=== PATIENT | female | born 1980 | race Hispanic/Latino ===

== ENCOUNTER 2016-08-12 16:22 | Emergency (ER) | payer SELFPAY ==
[~2016-08-12] VITALS: Ht 167.6 cm; Wt 71.4 kg
[~2016-08-12 16:22] MED LIST: MDR150V IM; PROC-4 PO; ZAN150T PO
[2016-08-12 16:40] VITALS: BP 124/74; PULSE 69; RESP 16; O2SAT 99
--- NOTE | 2016-08-12 18:08 | ED.REPORT ---
HPI-Abd Pain F Under 40 Date of Service Aug 12, 2016 ED Provider: Pratik Joy DO A 35 year old female with a history of fibromyalgia and bilateral tubal ligation presents to the ED complaining of lower abdominal pain radiating through the pelvis. This is accompanied by vaginal discharge. These symptoms been present for some time, and the pt had an ultrasound two weeks ago for evaluation. The ultrasound showed an ovarian cyst. The pt followed up with her PCP regarding these findings and has an appointment with a specialist in one month. She was also diagnosed with a bladder infection at that point and prescribed a five day course of antibiotics. She finished these antibiotics but her condition has not improved. Nursing Notes Stated Complaint: ABD PAIN Chief Complaint: Female Abdominal Pain Nursing Notes Reviewed: Yes Allergies: Coded Allergies: No Known Allergies (Verified Allergy, Unknown, 08/12/16) General Time Seen by MD: 18:07 Chief Complaint Pelvic pain Hx Obtained From: Patient Arrived By: Walk-in Sudden in Onset?: No Onset Occurred: More than a week ago... Symptom Duration: Since onset Recent Healthcare: No recent hospitalization, Recent doctor visit Similar Sx Previous: No Past Medical History Past Medical History chronic headaches-not previously worked up fibromyalgia Reports: GERD Past Surgical History laparoscopic bilateral tubal ligation Smoking History Never Smoker Social History Alcohol Use: "Social" Drug Use: Denies drug use Other Social History: Good social support, , Lives with children Ambulatory Status Independent Review of Systems Respiratory: Denies: Non-productive cough, Shortness of breath Cardiovascular: Denies: Chest pain GI: Reports: Abdominal pain, Denies: Vomiting Female: Reports: Pelvic pain, Vaginal discharge Musculoskeletal: Denies: Neck pain Complete sys rev & neg: except as marked. Physical Exam Initial Vital Signs Vital Signs (First) Date Time Temp Pulse Resp B/P Pulse Ox O2 Delivery O2 Flow Rate FiO2 08/12/16 16:40 37.1 69 16 124/74 99 Room Air Initial VS: Reviewed General/Constitutional: Awake, Alert Respiratory / Chest: Atraumatic, Breath sounds NL, Breath sounds = bilat, No respiratory distress Cardiovascular: Heart rate NL, Regular rhythm, Heart sounds NL Abdomen: Atraumatic, Soft diffuse lower abdominal tenderness Back: Atraumatic, Full range of motion Head / Eyes: Atraumatic, Normocephalic, PERRL, EOMI ENT: Atraumatic, Airway patent, Mucous membranes moist Skin: Atraumatic, Color NL, No rash, Warm, Dry 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 Findings suspicious for an endometrial polyp. Nonemergent hysterosonogram may be helpful to further characterize findings if clinically indicated. 2. Otherwise unremarkable pelvic ultrasound. Dictated by: Etta Moseley M.D. on 08/12/2016 at 20:08 Approved by: Etta Moseley M.D. on 08/12/2016 at 20:12 Lab Results Interpretation Result Diagram: 08/12/16 1848 08/12/16 1848 Test 08/12/16 17:45 08/12/16 18:48 08/12/16 19:51 Hold Urine Received (Received) White Blood Count 6.9th/mm3 (3.8-10.1) Red Blood Count 4.82mil/mm3 (3.90-5.20) Hemoglobin 14.4g/dL (12.0-15.6) Hematocrit 42.2% (35.0-46.0) Mean Corpuscular Volume 87.6fL (81-100) Mean Corpuscular Hemoglobin 29.9pg (27.0-35.0) Mean Corpuscular Hemoglobin Concent 34.1% (32.0-37.0) Red Cell Distribution Width 12.9% (12.3-15.4) Platelet Count 352bil/L (150-400) Neutrophils (%) (Auto) 47.7% (40-74) Lymphocytes (%) (Auto) 46.0% (14-46) Monocytes (%) (Auto) 5.0% (4-12) Eosinophils (%) (Auto) 0.6% (0-5) Basophils (%) (Auto) 0.6% (0-3) Sodium Level 138mEq/L (134-144) Potassium Level 3.7mEq/L (3.5-5.2) Chloride Level 102mEq/L (97-108) Carbon Dioxide Level 20mmol/L (18-29) Blood Urea Nitrogen 7mg/dL (6-20) Creatinine 0.52mg/dL (0.57-1.00) Estimat Glomerular Filtration Rate 195mL/min (>59) Glucose Level 97mg/dL (60-99) Calcium Level 9.3mg/dL (8.5-10.1) Total Bilirubin 0.2mg/dL (0.0-1.2) Aspartate Amino Transf (AST/SGOT) 20U/L (0-50) Alanine Aminotransferase (ALT/SGPT) 15U/L (0-32) Alkaline Phosphatase 91U/L (25-150) Total Protein 8.3g/dL (6.4-8.4) Albumin 4.8g/dL (3.4-5.0) Lipase 21U/L (13-60) HCG Beta Subunit < 0.500mIU/mL Urine Color Straw (YELLOW) Urine Appearance Clear (CLEAR,HAZY) Urine pH 5.0 (5.0-8.0) Urine Specific [place] 1.010 (1.003-1.035) Urine Protein Negativemg/dL (NEG,TRACE) Urine Glucose (UA) Negativemg/dL (NEGATIVE) Urine Ketones Negativemg/dL (NEGATIVE) Urine Occult Blood Small (NEGATIVE) Urine Nitrite Negative (NEGATIVE) Urine Bilirubin Negative (NEGATIVE) Urine Urobilinogen Normalmg/dL (NORMAL) Urine Leukocyte Esterase Negative (NEGATIVE) Urine RBC 0-2/hpf (0-2) Urine WBC 0-5/hpf (0-5) Urine Epithelial Cells Few/hpf (NONE-MOD) Urine Crystals None seen (NONE SEEN) Urine Bacteria None/hpf (NONE-FEW) Urine Hyaline Casts None/lpf (NONE) Urine Granular Casts None seen (NONE SEEN) Urine Waxy Casts None seen (NONE SEEN) Urine Red Blood Cell Casts None seen (NONE SEEN) Urine White Blood Cell Casts None seen (NONE SEEN) Urine Mucus None seen (None Seen) Urine Trichomonas None seen (NONE SEEN) Urine Yeast None (NONE SEEN) Urinalysis Comment None Urine Culture Reflexed Not indicated Chlamydia trachomatis DNA (ANTHONY) Negative (Negative) Neisseria gonorrhoeae DNA (ANTHONY) Negative (Negative) CT Abd / Pelvis Interpretation CONCLUSION: Normal appendix. No evidence of obstructive uropathy. 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 Nabothian cysts noted. Interpretation / Wet Read by: Interpret - Radiologist Pulse Oximetry Interpretation Pulse Oximetry Interpretation: 99% on room air Pulse Oximetry: Pulse Ox normal Re-Eval/Medical Decision Source of Hx: Old records Re-Evaluation/Progress #1: Time of Eval: 21:34 Re-Evaluation/Progress Note: Pt rechecked, who is feeling better but remains tender. Further treatment is discussed. Re-Evaluation/Progress #2: Time of Eval: 22:41 Patient Status: Condition improved Re-Evaluation/Progress Note: Pt rechecked, whose condition has improved. Pelvic exam is performed. Re-Evaluation/Progress #3: Time of Eval: 23:25 Patient Status: Condition improved Re-Evaluation/Progress Note: Pt rechecked, who is resting comfortably. She is informed of her diagnosis and the plan for discharge. The pt understands and agrees with the plan. All questions are addressed at this time. Counseled Regarding: Diagnosis, Lab results, Need for follow-up, When/why to return to ED Discharge & Departure Primary Impression: Pelvic pain Additional Impression: Cervicitis Disposition: Home Discharge Condition All VS Reviewed: Yes Condition: Stable Patient Instructions: Acute Abdominal Pain (ED), Cervicitis (ED) Additional Instructions: The ultrasound shows that you have an endometrial polyp. This will need to be followed up with her primary care physician. I doubt that this is the cause of the pain though. I suspect that sure suffering from a cervix infection. Take doxycycline twice daily for 7 days. Avoid sunlight while on the doxycycline. The CAT scan of her abdomen was also reassuring. No signs of acute intra- abdominal pathology. You may take 1-2 [place] every 6 hours as needed for pain tonight. Do not drive or take alcohol or acetaminophen while taking the [place]. Call your doctor tomorrow set up a close follow-up. Return if any problems or any worsening symptoms. Referrals: Ishan Angelo MD (PCP) Scribe Attestation Portions of this note were transcribed by Mary Carmen Benavidez. I, Dr. Joy personally performed the history, physical exam and medical decision-making; I reviewed and confirmed the accuracy of the information in the transcribed note. Signed by: Xavier Ray, 08/12/2016 and [id number]. copies to: Ishan Angelo MD, Todd P DO Aug 12, 2016 18:08 MARY CARMEN BENAVIDEZ Aug 12, 2016 18:28
[2016-08-12] MEDS ORDERED: Ondansetron 2 mg/mL 2 mL Inj IVPUSH PRN (18:25)
[2016-08-12 18:59] VITALS: BP 110/66; PULSE 95; RESP 16; O2SAT 100
[2016-08-12 18:59] LABS: BASOPHILS % (AUTO) 0.6 % (0-3); EOSINOPHILS % (AUTO) 0.6 % (0-5); Mean Corpuscular Hemoglobin 29.9 pg (27.0-35.0); Mean Corpuscular Volume 87.6 fL (81-100); NEUTROPHILS % (AUTO) 47.7 % (40-74); Platelet Count 352 bil/L (150-400)
[2016-08-12] MEDS: HYDROmorphone 0.5 mg/0.5 mL iSecure Syringe IVPUSH PRN ×2 (18:59→20:00)
[2016-08-12 19:22] LABS: Lipase 21 U/L (13-60)
--- NOTE | 2016-08-12 20:14 | DRSVH ---
PROCEDURE: US PELVIC SONOGRAM + TRANSVAGINAL SONOGRAM INDICATIONS: worsening pelvic pain, recent abnormal L adnexa US TECHNIQUE: Real-time scanning was performed of the pelvic organs, with image documentation. Additional endovagi nal scanning was necessary due to incomplete visualization of the adnexal and endometrial structures by transabdominal scanning. COMPARISON: None. FINDINGS: Transabdominal scanning: No pathologic free abdominal or pelvic fluid. Endovaginal scanning: Uterus: Uterus is normal in size at 8.8 x 4.1 x 5.5 cm. The endometrium measures 10.2 mm in combine d thickness. There is a questionable 1.2 x 0.7 x 0.8 cm polyp within the endometrium. A central vess el is visualized suggesting the presence of a vascular stalk. Nabothian cysts are present at the cerv ix. Ovaries: The right ovary measures 2.5 x 1.8 x 2.6 cm and has normal echotexture. The left ovary measu res 1.9 x 3.2 x 2.4 cm and has normal echotexture. Trace free fluid is present near the uterine fundus. IMPRESSION: 1. Findings suspicious for an endometrial polyp. Nonemergent hysterosonogram may be helpful to furthe r characterize findings if clinically indicated. 2. Otherwise unremarkable pelvic ultrasound. Dictated by: Etta Moseley M.D. on 08/12/2016 at 20:08 Approved by: Etta Moseley M.D. on 08/12/2016 at 20:12
[2016-08-12 20:29] LABS: APPEARANCE,URINE CLEAR (CLEAR,HAZY); COLOR,URINE STRAW (YELLOW); OCCULT BLOOD,URINE SMALL (NEGATIVE); UROBILINOGEN,URINE NORMAL (NORMAL)
[2016-08-12 22:18] VITALS: BP 135/80; PULSE 54; RESP 16; O2SAT 100
[2016-08-12] MEDS ORDERED: cefTRIAXone Inj 250 MG, Lidocaine PF 1% Inj 0.9 ML in Syringe 1 EACH IM ONE (22:45)
[2016-08-12] MEDS ORDERED: _HYDROcodone/APAP 5-325 mg Tablet PO PRN (22:50)
[2016-08-12 23:47] VITALS: BP 112/73; PULSE 54; RESP 19; O2SAT 98
--- NOTE | 2016-08-13 09:24 | DRSVH ---
PROCEDURE: CT ABDOMEN AND PELVIS WITH CONTRAST ([id number]) INDICATIONS: RLQ pain, normal ultrasound TECHNIQUE: After the administration of intravenous contrast, 5 mm thick sections acquired from the diaphragm to the symphysis. 5 mm coronal and sagittal reformats were acquired. For radiation dose reduction, the following was used: automated exposure control, adjustment of mA and/or kV according to patient siz e. COMPARISON: None. FINDINGS: Image quality: Excellent. ABDOMEN: Lung bases: Lung bases are clear. Heart size is normal. Solid organs: Liver and spleen are normal in size and enhancement. Gallbladder is within normal shaffer its. Biliary system is non dilated. Pancreas enhances normally. Within the left anterior pararenal space, at the posterior aspect of the pancreatic tail, there is a platelike region of soft tissue den sity measuring 53 mm craniocaudal by 6 mm anteroposterior by 36 mm transverse. No adrenal nodules. K idneys demonstrate normal size and enhancement, without hydronephrosis. Peritoneum and bowel: Bowel loops demonstrate normal wall thickness and caliber. No free air. Small amount of free fluid in the pelvis, within physiological limits in a menstruating female. Normal margarito endix. Nodes and vessels: No retroperitoneal or mesenteric adenopathy by size criteria. Aorta and inferior vena cava are normal in size. Miscellaneous: No ventral hernias. PELVIS: Genitourinary: Bladder wall thickness is normal. Miscellaneous: No inguinal hernias or adenopathy. Bones: No suspicious bony lesions. No vertebral body compression fractures. IMPRESSION: 1. No acute process. 2. Normal appendix. 3. Indeterminate soft tissue density within the left anterior pararenal space. Differential considera tions for this appearance include scarring secondary to prior/remote pancreatitis versus an atypical appearance of ectopic pancreatic tissue. 4. Small amount of free fluid within the pelvis, within physiological limits in a menstruating female . Dictated by: Hossein Mcgrath M.D. on 08/13/2016 at 8:52 Approved by: Hossein Mcgrath M.D. on 08/13/2016 at 9:22
[2016-09-11] MEDS ORDERED: OCP (16:25)
[2016-09-11] MEDS ORDERED: ibuprofen (16:25)
[2016-09-11] MEDS ORDERED: MULT-1018 PO (16:25)
[2016-10-24] MEDS ORDERED: OMEP20CA11 PO (08:30)
[2016-10-24] MEDS ORDERED: IBUP-1827 PO (08:30)
[2016-11-13] MEDS ORDERED: IBUP-1827 PO (09:32)
[2016-11-13] MEDS ORDERED: OXYB5TAB PO (09:32)
[2016-11-13] MEDS ORDERED: SERT50TA9 PO (09:32)
== END 2016-08-12 23:47 | disposition home or self-care (01) ==
LOC: SED 16:22
DX: R10.2 Pelvic and perineal pain (principal); N72 Inflammatory disease of cervix uteri; K21.9 Gastro-esophageal reflux disease without esophagitis; M79.7 Fibromyalgia
CPT/HCPCS: 36415; 74177; 76830; 76856; 80053; 81000; 81025; 83690; 84702; 85025; 87491; 87591; 96372; 96374; 96375; 96376; 99285; J0696; J1170; J1885; J2405; Q9967

== ENCOUNTER 2016-09-12 11:12 | Day surgery (SDC) | payer SELFPAY ==
[~2016-09-12] VITALS: Ht 167.6 cm; Wt 70.0 kg
[2016-09-12] VITALS (11 sets, daily range): BP systolic 98–126; BP diastolic 62–77; PULSE 65–85; RESP 11–18; O2SAT 95–99
[~2016-09-12 11:12] MED LIST changes: -MDR150V IM; +MULT-1018 PO; +OCP; -PROC-4 PO; -ZAN150T PO; +ibuprofen
[2016-09-12] MEDS ORDERED: Ondansetron 2 mg/mL 2 mL Inj ONE (11:13)
[2016-09-12] MEDS ORDERED: Rocuronium 10 mg/mL 5 mL Inj ONE (11:13)
[2016-09-12] MEDS ORDERED: Dexamethasone 4 mg/mL Inj ONE (11:13)
[2016-09-12] MEDS ORDERED: fentaNYL-PF 50 mCg/mL 2 mL Inj ONE (11:13)
[2016-09-12] MEDS ORDERED: Esmolol 10,000 mCg/mL 10 mL Inj ONE (11:13)
[2016-09-12] MEDS ORDERED: Propofol 10,000 mCg/mL 20 mL Inj ONE (11:13)
[2016-09-12] MEDS ORDERED: Succinylcholine Chloride 20 mg/mL 5 mL Inj ONE (11:13)
[2016-09-12] MEDS ORDERED: Glycopyrrolate 0.2 MG/ML 1mL Inj ONE (11:13)
[2016-09-12] MEDS ORDERED: Ketamine 10 mg/mL 20 mL Inj ONE (11:13)
[2016-09-12] MEDS ORDERED: Neostigmine 1 mg/mL 10 mL Inj ONE (11:13)
[2016-09-12] MEDS ORDERED: Lactated Ringer's 1,000 ML IV ONE (11:46)
[2016-09-12] MEDS ORDERED: CeFAZolin Inj 2 gm / 50mL D5W IV ONE (12:14)
[2016-09-12 12:21] LABS: EOSINOPHILS % (AUTO) 0.3 % (0-5); MONOCYTES % (AUTO) 6.4 % (4-12); Mean Corpuscular Hemoglobin 29.9 pg (27.0-35.0); Mean Corpuscular Volume 89.5 fL (81-100); NEUTROPHILS % (AUTO) 52.1 % (40-74); Platelet Count 336 bil/L (150-400)
--- NOTE | 2016-09-12 13:11 | PCM.HPANE ---
Patient Data Date of Service: Sep 12, 2016 Surgeon Admitting Provider: Attending Provider:Anushka Simmons MD Primary Care Physician:Ishan Angelo MD Other Provider:Abdi Bangura Anesthesia Reason for Visit High-Grade Carina, Pelvic Pain Ht/WT & BMI Height (Feet): 5 Height (Inches): 6 Weight (Kilograms): 70 Body Mass Index 24.00 Allergies Coded Allergies: No Known Allergies (Verified Allergy, Unknown, 08/12/16) Past Anesthesia History Anesthesia History: Denies:: Anesthesia Reactions, Malignant Hyperthermia Diabetes History Hx Diabetes?: No MRSA MRSA: No Medications Hypertension Medication: No Home Meds Incl Beta Mariah: No Reported Medications Multivitamin (Multi Vitamin Daily)1 Each Tablet1 Each PO DAILY 30 Days Ref 0 09/11/16 [Ocp] No Conflict Check1 Tab DAILY 09/11/16 [ibuprofen] No Conflict CheckUnknown Dose DAILY PRN For Pain 09/11/16 History History of ENT Problems?: No HEENT History: Denies:: Abnormal Airway Cataracts Difficult Intubation Dysphagia Glaucoma Hearing Problem Sinus Problem TMJ Denture Type: None Teeth Condition: Within Normal Limits Hx of Heart Problems?: No Cardiovascular History: Denies:: AICD Abdominal Aortic Aneurism Atrial Fibrillation Cardiac Surgery Chest Pain Congestive Heart Failure Coronary Artery Disease Edema Heart Murmur Hypertension Irregular Heartbeat Pacemaker Peripheral Vascular Rheumatic Fever Thrombophlebitis Valvular Heart Disease Hx of Respiratory Problem?: No Respiratory History: Denies:: Asthma COPD Dyspnea Emphysema Oxygen Administration Pneumonia Tuberculosis Use of C-PAP Machine Hx Neurologic Problems?: No Neurological History: Denies:: CVA Multiple Sclerosis Parkinson's Disease Seizures Hx of GI Problems?: Yes Gastrointestinal History: Positive for:: Gastroesphageal Reflux (MILD) Hx of Problems?: No Genitourinary History: Denies:: Urinary Tract Infection Female Hx: Positive for:: Endometriosis Denies:: Currently Skin History: Denies:: History Skin Disorders? Pressure Ulcers Hx Musculoskeletal Problems?: Yes Musculoskeletal History: Positive for:: Fibromyalgia Denies:: Back Injury Joint Replacement Musculoskeletal Trauma Osteoarthritis Hx of Psycho/Social Problems?: No Psycho Social History: Denies:: Anxiety Bipolar Disorder Hx Depression Suicide Attempt Other History/Comment NO Hx Surgeries?: Yes (DX LAP, tubal) Hx Any Other Health Problems?: Yes Other History: Positive for:: Hospitalization ([facility]IL[facility]) Denies:: Cancer Endocrine Disease Thyroid Disease History Blood Transfusions: Denies:: Blood Transfusions Hx Diabetes: No Hx Alcohol Use: NoHx Substance Use: No Smoking Status: Never Smoker Have You Smoked inLast 12 mo: No Stop/Bang Treated for Sleep Apnea?: No Do You Have a CPAP Machine?: No S-Snoring: Do You Snore Loudly: No T-Tired: feel tired, fatigued: No O-Obsered: Observed not breath: No P-Blood Pressure: treated: No B- Body Mass Index > 35 kg/m2: No A- Age over 50: No N- Neck Large Circumference: No G- Gender Male: No CODY Total Score: 0 CODY Risk Assessment: Low Risk, <3 Yes Risk Assessment Category Category 1A: Patient has history of documented sleep apnea, and HAS NOT received any narcotic, sedative or anesthesia administration during this stay. Category 1B: Patient has history of documented sleep apnea, and HAS received any narcotic , sedative or anesthesia administration during this stay Category 2: Patient has SUSPECTED Obstructive Sleep Apnea, and HAS received any narcotic , sedative or anesthesia administration during this stay. Category 3: Patient has SUSPECTED Obstructive Sleep Apnea and HAS NOT received narcotic, sedative or anesthesia administration during this stay. Category 4: Outpatient in Procedural Areas with known sleep apnea or who screen positive for High Risk via the STOP/BANG questionnaire. Exam Exam Vital Signs Vital Signs Date Time Temp Pulse Resp B/P Pulse Ox O2 Delivery O2 Flow Rate FiO2 09/12/16 11:37 36.5 66 14 110/70 99 Room Air General Appearance: Alert, Oriented X3, No Acute Distress HEENT/AIRWAY: MP 1 Lungs: Clear to Auscultation Heart: Exam Unremarkable Meds/Labs/Diagnostics Admission Meds Current Medications Lactated Ringer's (Lr) 1,000 ml @ ud STK-MED ONCE IV Last administered on 09/12t 11:46; Start 09/12/16 at 11:46; Stop 09/12/16 at 11:47; Status DC Labs Test 09/12/16 12:00 White Blood Count 6.1th/mm3 (3.8-10.1) Red Blood Count 4.38mil/mm3 (3.90-5.20) Hemoglobin 13.1g/dL (12.0-15.6) Hematocrit 39.2% (35.0-46.0) Mean Corpuscular Volume 89.5fL (81-100) Mean Corpuscular Hemoglobin 29.9pg (27.0-35.0) Mean Corpuscular Hemoglobin Concent 33.4% (32.0-37.0) Red Cell Distribution Width 13.2% (12.3-15.4) Platelet Count 336bil/L (150-400) Neutrophils (%) (Auto) 52.1% (40-74) Lymphocytes (%) (Auto) 40.0% (14-46) Monocytes (%) (Auto) 6.4% (4-12) Eosinophils (%) (Auto) 0.3% (0-5) Basophils (%) (Auto) 1.0% (0-3) Sodium Level 139mEq/L (134-144) Potassium Level 4.1mEq/L (3.5-5.2) Chloride Level 104mEq/L (97-108) Carbon Dioxide Level 19mmol/L (18-29) Blood Urea Nitrogen 7mg/dL (6-20) Creatinine 0.44mg/dL (0.57-1.00) Estimat Glomerular Filtration Rate 236mL/min (>59) Glucose Level 105mg/dL (60-99) Calcium Level 9.6mg/dL (8.5-10.1) Plan Impression Patient chart reviewed, patient interviewed and anesthestic plan with risks, benefits, and alternatives discussed, and informed consent obtained. ASA Physical Status: ASA2 Mod Systemic Disease Anesthetic Plan: GA Bene/Risks/Altern/Consents: Yes HP Complete Prior to Induction: Yes Geovany Harrell MD Sep 12, 2016 13:11
[2016-09-12] MEDS ORDERED: Bupivacaine-MPF 0.5% W/EPI 30 mL Inj INFILTRATE ONE (14:01)
[2016-09-12] MEDS ORDERED: Lactated Ringer's 1,000 ML IV SCH (14:21)
[2016-09-12] MEDS ORDERED: Lactated Ringer's 500 ML IV PRN (14:21)
[2016-09-12] MEDS ORDERED: Dexamethasone 4 mg/mL Inj IVPUSH PRN (14:25)
[2016-09-12] MEDS ORDERED: MetoCLOpramide 5 mg/mL 2 mL Inj IVPUSH PRN (14:25)
[2016-09-12] MEDS ORDERED: Ondansetron 2 mg/mL 2 mL Inj IVPUSH PRN (14:25)
[2016-09-12] MEDS ORDERED: HYDROmorphone 1 mg/mL Inj IVPUSH PRN (14:25)
[2016-09-12] MEDS ORDERED: Phenylephrine 10,000 mCg/mL Inj IVPUSH PRN (14:25)
[2016-09-12] MEDS ORDERED: EPHEDrine Sulfate 50 mg/mL Inj IVPUSH PRN (14:25)
[2016-09-12] MEDS ORDERED: HYDROmorphone 0.5 mg/0.5 mL iSecure Syringe ONE ×3 (15:34→16:15)
[2016-09-12] MEDS ORDERED: Acetaminophen IV 1,000 MG in IV Premix 1 EACH IV ONE (15:50)
[2016-09-12] MEDS: fentaNYL-PF 50 mCg/mL 2 mL Inj IVPUSH PRN ×2 (15:50→16:02)
--- NOTE | 2016-09-12 15:52 | PCM.DIOB ---
Obstetrical Disch Instruction Date of Service: Sep 12, 2016 Dates of Hospitalization Date of Hospital Admission Providers Admitting Physician: Primary Care Physician: Ishan Angelo MD Attending Physician: Anushka Simmons MD Discharge Diagnosis Discharge Diagnosis Chronic Pelvic Pain, possible adenomyosis, no evidence of endometriosis, S/P Diagnostic Laparoscopy . Thick Endometrial lining, no endometrial polyp S/P Hysteroscopy and D&C. High grade squamous intraepithelial dysplasia, S/P LEEP Problems: Diet Discharge Diet: No restrictions Activity Discharge Activity-General: Pelvic Rest for 6 weeks (no sex, no douching nor tampons), No lifting >10 pounds for 4-6 weeks Dressing and Incisional Care Hygiene: May shower Follow Up Plan Follow-up Provider (F9): Anushka Simmons MD Follow-up appointment: Weeks (Two) Call your provider for: Fever or Chills, Shortness of breath, Heavy vaginal bleeding, Heavy bleeding, Epigastric pain, Excessive constipation, Vaginal discomfort, Red painful breasts (Leg swelling, pain or redness) Anushka Simmons MD Sep 12, 2016 15:52
[2016-09-12] MEDS ORDERED: oxyCODONE-Acetamin 5-325 mg Tablet PO PRN (16:10)
--- NOTE | 2016-09-12 23:50 | OP ---
[address] [address] OPERATIVE REPORT PATIENT: KELLIE ROTHMAN : 1980 MR#: [id number] ADMIT: 09/12/2016 JOB ID: [id number] DATE OF SURGERY: 09/12/2016 PREOPERATIVE DIAGNOSIS(ES): 1. Chronic pelvic pain. 2. Endometrial polyp per ultrasound. 3. 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 POSTOPERATIVE DIAGNOSIS(ES): 1. Chronic pelvic pain. Possible adenomyosis. No evidence of endometriosis by laparoscopy. 2. Thick endometrial lining. No evidence of endometrial polyp by hysteroscopy. 3. High grade squamous intraepithelial dysplasia of the cervix. PROCEDURE: 1. Diagnostic laparoscopy. 2. Diagnostic hysteroscopy. 3. Dilatation and curettage. 4. Loop electrosurgical excision procedure of the cervix. COMPLICATIONS: None. IMPLANTS: None. SURGEON: Anushka Simmons MD. MEDICAL PRACTICE ADMINISTRATOR: Min Santana MD. Shot Coat Tender was required for safe completion of the procedure and appropriate visualization. ESTIMATED BLOOD LOSS: 75 mL. INTRAVENOUS FLUIDS: 800 mL crystalloid fluid. URINE OUTPUT: 20 cc of urine was drained prior to the procedure. ANESTHESIA: General. SPECIMENS: 1. LEEP cone biopsy, endocervical canal. 2. Endometrial curetting. 3. Endocervical curetting. FINDINGS: Laparoscopic findings: Normal uterus in shape. No evidence of masses but relatively enlarged to be 9-10 weeks in size possibly secondary to adenomyosis. Normal ovaries status post bilateral salpingectomy in the past. Normal appendix, normal liver and gallbladder. Grossly normal upper abdomen. The peritoneal lining appeared to be congested with some yellowish patches but not typical of endometriosis lesions. Congestion noted mostly in the anterior and posterior cul-de-sac. Normal uterosacral ligaments. Hysteroscopic findings: Endometrial lining appeared to be thick and irregular possibly secondary to menstruation status as the patient started menstruation a few days ago. No evidence of any endometrial polyp or lesions. PROCEDURE IN DETAIL: After informed consent was obtained, the patient was taken to the operation room. She was placed under general anesthesia. Then, she was prepped and draped in usual sterile fashion for abdominal and pelvic procedure. The patient was placed in dorsal lithotomy position. Heavy weighted speculum was placed in the posterior vaginal vault. Anterior retractor was used with good visualization of the cervix. Uterine manipulator was placed and the anterior cervical lip was grasped with a single-tooth tenaculum articulating the anterior tenaculum with uterine manipulator. Then, maintaining a sterile technique, gloves were changed and attention was turned to the abdominal part of the procedure. Subumbilical skin incision was made with a scalpel that was carried down to the fascia with sharp and blunt dissection. The fascia was identified and was grasped with Bernadette clamps, then was elevated up to the incision. Fascial incision was made with a scalpel. Then, the peritoneum was identified and was grasped with hemostats and then was elevated through the incision and incision was made with Metzenbaum scissors in the peritoneum in an area clear of vascularity or adhesions. A Amalia trocar 10 mm was placed at the incision. Confirmation of intraperitoneal placement was performed with a scope, then insufflation was started, and the trocar was secured in place with an inflated balloon. Then, systematic examination of the pelvis was performed. The patient was placed in the Trendelenburg position and a 2nd trocar was placed in the right lower quadrant to assist in manipulation of the pelvic organs. A 5 mm trocar was placed through a 5 mm incision under direct visualization. Systematic examination of the lower pelvis and upper abdomen was performed with the findings as mentioned above. Both ureter peristalsis was noted. Minimal pelvic adhesions noted to the pelvic side giraldo within the physiological variants. Multiple endoscopic pictures were obtained. Then, the scope was removed from the scope and was placed in the right lower quadrant port. Examination of the port placement at the infraumbilical port was performed with no evidence of injury or adhesions or any attached viscera. The intra-abdominal pressure was decreased. No evidence of any active bleeding at either ports. The infraumbilical port balloon was deflated. The port was slowly withdrawn with no evidence of bleeding and removed under direct visualization. The right lower quadrant port was removed. Complete deflation of the abdomen was performed before the closure of the fascial incision with 0-Vicryl in running fashion. Note: The fascia was tagged with a suture upon entry and the same suture was used to close the fascia. The skin was approximated with simple subcuticular stitches of 4-0 Vicryl. Steri-Strips were applied followed by adhesive bandage. Then, attention was turned to the hysteroscopic part of the procedure where the uterine manipulator was removed, the cervix was serially dilated to accommodate the hysteroscope, dilated to a size 6 Hegar dilator. Then, the hysteroscope was introduced with the findings as mentioned above. The hysteroscope was removed. Dilatation and curettage was performed in systematic fashion in all four quadrants starting with endocervical curettings. Then, the endometrial curettings were performed. The hysteroscope was then introduced and the endometrial cavity was examined and good curettage result was noted throughout the endometrial cavity. Both ostia were visualized. Then, attention was turned to the LEEP part of the procedure where the cervix was painted with Lugol's solution and area of decreased uptake was noted around the cervical os mostly to the right and lower quadrant. Then, size 2 x 0.8 cm loop electrode was used to excise the anterior lip of the cervix. Then, the posterior lip of the cervix around the cervical canal followed by a top-hat fashion excision of the endocervical canal using 1.5 x 1.2 loop electrode followed by silver ball cautery of the cervix with good hemostasis. Then, ECC was performed to ensure patency of the endocervical canal. Single-toothed tenaculum was removed. Hemostasis was ensured by applying Monsel's solution. Cervix was hemostatic. All instruments were removed from the vagina. All instrument, needle, sponge counts were correct x2. The patient tolerated the procedure well and was transferred to the recovery room in stable condition. Anushka Saldivar MD, was present and scrubbed for the entire procedure. JEANNETTE
--- NOTE | 2016-09-16 15:15 | PATH ---
SURGICAL PATHOLOGY Attending Physician:Anushka Simmons CASE STATUS: Signed Out PATIENT NAME: OLLIE ROTHMAN PID: [id number] : 1980 DATE COLLECTED:09/12/2016 23:45 SPECIMEN: 1: Endocervix, Curettage 2: Endometrium, Curettage 3: Cervical, Cone 4: Endocervix, Biopsy CLINICAL HISTORY: HIGH GARDE CORIE, PELVIC PAIN 1). ENDOCERVICAL CURETTINGS 2). ENDOMETRIAL CURETTINGS 3). CERVICAL LEEP CONE, LONG SUTURE AT 12:00, SHORT SUTURE AT 6:00 4). ENDOCERVICAL CANAL FINAL DIAGNOSIS: 1.ENDOCERVICAL CURETTINGS: FRAGMENTS OF ENDOCERVICAL TISSUE, NEGATIVE FOR ATYPIA. 2.ENDOMETRIAL CURETTINGS: FRAGMENTS OF PROLIFERATIVE ENDOMETRIUM, NEGATIVE FOR ATYPIA. SMALL FRAGMENTS CONSISTENT WITH PORTIONS OF BENIGN ENDOMETRIAL POLYP, NEGATIVE FOR ATYPIA. 3.CERVICAL LEEP CONE BIOPSY: CERVICAL TISSUE, INCLUDING TRANSFORMATION ZONE WITH CHRONIC INFLAMMATION AND REACTIVE EPITHELIAL CHANGES. RARE GROUPS OF SQUAMOUS EPITHELIAL CELLS WHICH APPEAR HIGHLY ATYPICAL, BUT ARE SEVERELY ALTERED BY CAUTERY ARTIFACT WHICH PRECLUDES ADEQUATE EVALUATION. ONE ENDOCERVICAL GLAND CONTAINING ATYPICAL METAPLASTIC SQUAMOUS EPITHELIUM. 4.ENDOCERVICAL CANAL TISSUE: ENDOCERVICAL TISSUE, NEGATIVE FOR ATYPIA. ICD10 CODE R87.613 GROSS DESCRIPTION: The specimens are received in formalin, labeled with the patient's name, and sublabeled as the following: (1) endocervical curettings; (2) endometrial curettings; (3) cervical LEEP cone, long suture @ 12:00, short suture 0600; (4) endocervical canal. (1) The specimen consists of clear gelatinous material containing multiple fragments of red-brown glistening tissue (2.4 x 2.1 x 0.3 cm in aggregate). Section code: (1A) tissue. Specimen entirely submitted. (2) The specimen consists of multiple fragments of mckenzie-white and red-brown glistening tissue (2.5 x 2.5 x 0.5 cm in aggregate). Section code: (2A) tissue. Specimen entirely submitted. (3) The specimen consists of a cervical LEEP biopsy (1.3 cm 12:00 to 6:00, 3.0 cm 3:00 to 9:00, 1.5 cm ectocervix to endocervix) received in 2 pieces. The specimen is oriented with 2 black sutures (long-12:00; short-6:00). The mucosa and cut surface are pichardo-pink smooth with multiple pale-yellow, yellow-orange well circumscribed nodules (0.1 cm-0.2 cm) and cystic cavities (0.1cm-0.7 cm) containing clear colorless gelatinous material. Ink code: blue-radial; black-deep. Section code: (3A) 12:00-3:00; (3B) 3:00-6:00; (3C) 6:00-9:00; (3D) 9:00-12:00. Specimen entirely submitted. (4) The specimen consists of 3 unoriented pieces of cervix (3.1 x 2.6 x 0.5 cm in aggregate, ranging 1.5 x 1.2 x 0.5 cm-3.1 x 1.1 x 0.4 cm). The mucosa is mckenzie-pink smooth and shiny. The endocervix is mckenzie and finely granular with multiple cystic cavities (0.2-0.4 cm) containing clear colorless gelatinous material identified. No other nodules, masses or lesions identified. Ink code: black-resection margin. Section code: (4A) piece #1, serially sectioned; (4B) piece #2, serially sectioned; (4C-4D) piece #3, serially sectioned. Specimen entirely submitted. 09/14/16 JM MICRO DESCRIPTION: See diagnosis. ICD-9 CODES: CPT CODES: 1: 56166 2: 56995 3: 65675 4: 66389 Electronically Signed Out Ziggy Avila MD [facility] [address], [place] [address] Technical component performed at [facility], [address] [place] [address] Ave[address], [place], [address]
[2016-10-24] MEDS ORDERED: OMEP20CA11 PO (08:30)
[2016-10-24] MEDS ORDERED: IBUP-1827 PO (08:30)
[2016-11-13] MEDS ORDERED: SERT50TA9 PO (09:32)
[2016-11-13] MEDS ORDERED: OXYB5TAB PO (09:32)
[2016-11-13] MEDS ORDERED: IBUP-1827 PO (09:32)
== END 2016-09-12 23:59 | disposition home or self-care (01) ==
LOC: SAS 11:12
PROVIDERS: ATTEND Obstetrics & Gynecology
DX: R87.613 High grade squamous intraepithelial lesion on cytologic smear of cervix (HGSIL) (principal); N84.1 Polyp of cervix uteri; M79.7 Fibromyalgia; F33.2 Major depressive disorder, recurrent severe without psychotic features; F43.10 Post-traumatic stress disorder, unspecified; E55.9 Vitamin D deficiency, unspecified; K21.9 Gastro-esophageal reflux disease without esophagitis
CPT/HCPCS: 36415; 57522; 58558; 58660; 80048; 85025; 86850; J0131; J0330; J0690; J1100; J1170; J1885; J2175; J2250; J2405; J2710; J2765; J3010; J7120

== ENCOUNTER 2016-10-25 08:25 | Day surgery (SDC) | payer SELFPAY ==
[2016-10-25] VITALS (7 sets, daily range): BP systolic 94–107; BP diastolic 49–70; PULSE 60–72; RESP 16; O2SAT 97–100
[~2016-10-25] VITALS: Ht 165.1 cm; Wt 66.7 kg
[~2016-10-25 08:25] MED LIST changes: +IBUP-1827 PO; +OMEP20CA11 PO; +Sodium Chloride LOK Flush 10 mL Syringe IV PRN; +fentaNYL-PF 50 mCg/mL 2 mL Inj IVPUSH PRN; -ibuprofen
[2016-10-25] MEDS ORDERED: fentaNYL-PF 50 mCg/mL 2 mL Inj IVPUSH ONE (08:26)
[2016-10-25] MEDS ORDERED: OXYC1TAB24 PO (08:45)
[2016-10-25] MEDS: 0.9% Sodium Chloride 1,000 ML IV SCH ×2 (08:54→09:01)
[2016-10-25] MEDS ORDERED: Ondansetron 2 mg/mL 2 mL Inj ONE (10:09)
--- NOTE | 2016-10-26 05:10 | ENDO ---
[address] [address] ENDOSCOPY PROCEDURE PATIENT: KELLIE ROTHMAN : 1980 MR#: [id number] ADMIT: 10/25/2016 JOB ID: [id number] DATE OF SERVICE: 10/25/2016 TYPE OF OPERATION: 1. Estimated gestational age with biopsy. 2. Colonoscopy with biopsy. PREOPERATIVE DIAGNOSES: 1. Abdominal pain. 2. Gastroesophageal reflux disease. 3. Change in bowel habits. POSTOPERATIVE DIAGNOSES: 1. Normal upper endoscopy, status post biopsy. 2. Small internal hemorrhoids. ANESTHESIA: Fentanyl 150 mcg and Versed 6 mg IV administered. COMPLICATIONS: None. BLOOD LOSS: Minimal. DESCRIPTION OF PROCEDURE: After risks and benefits were explained to the patient, informed consent was obtained. After anesthesia administered, an upper endoscope was then inserted into the mouth intubating the esophagus, stomach, to the second portion of duodenum. Mucosa carefully examined. After procedure was done, the scope withdrawn and procedure terminated. Colonoscope was then inserted from the rectum to the terminal ileum. Mucosa carefully examined. Prep of the patient was excellent. After procedure was done, the scope withdrawn and procedure terminated. FINDINGS: Upon inspection of the esophagus, the esophagus was normal without masses, ulcers, or lesions. Z-line located at 40 cm from incisors. Upon entering the stomach, the stomach was also normal without masses, ulcers, or lesions. Retroflexion normal. Duodenal bulb and first and second portions were normal. Biopsies taken of duodenum, antrum, body and distal esophagus. Upon inspection of the anus, no masses, hemorrhoids, ulcers, or fissures that were seen. Throughout the entire examination, there were no polyps, masses, or lesions. Biopsies taken at terminal and random colon. Retroflexion showed small internal hemorrhoids. IMPRESSIONS: 1. Small internal hemorrhoids. 2. Normal upper endoscopy, status post biopsy. RECOMMENDATION: Await pathology results. Follow up in GI clinic with Dr. Alan Harris as an outpatient.
--- NOTE | 2016-10-28 18:18 | PATH ---
SURGICAL PATHOLOGY Attending Physician:Krystian Joseph MD CASE STATUS: Signed Out PATIENT NAME: OLLIE ROTHMAN PID: [id number] : 1980 DATE COLLECTED:10/25/2016 22:05 SPECIMEN: 1: Duodenum, Biopsy 2: Stomach, Antrum, Biopsy 3: Gastric, Biopsy 4: Esophagus, Biopsy 5: Ileum, Biopsy 6: Colon, Biopsy CLINICAL HISTORY: 1). DUODENAL BIOPSY 2). ANTRUM BIOPSY 3). GASTRIC BODY BIOPSY 4). DISTAL ESOPHAGEAL BIOPSY 5). TERMINAL ILEUM BIOPSY 6). RANDOM COLON BIOPSY FINAL DIAGNOSIS: 1. Duodenum Biopsy: Duodenal mucosa with no diagnostic abnormality. Negative for active inflammation, features of sprue, dysplasia, or malignancy. 2. Antrum Biopsy: Portions of gastric antral mucosa with mild chronic gastritis. No definite H. pylori organisms identified by H&E stain. Immunohistochemistry studies pending; results will be reported as an addendum. Negative for intestinal metaplasia, dysplasia, and malignancy. 3. Gastric Body Biopsy: Portions of gastric body-type mucosa with mild chronic gastritis. No definite H. pylori organisms identified by H&E stain. H. pylori immunohistochemistry studies pending; results will be reported as an addendum. Negative for intestinal metaplasia, dysplasia, and malignancy. 4. Distal Esophageal Biopsy: Portions of squamous epithelium with no diagnostic abnormality. Negative for squamous dysplasia and malignancy. No well-preserved columnar epithelium identified for evaluation. 5. Terminal Ileum Biopsy: Superficial portions of small intestinal mucosa with no diagnostic abnormality. Negative for dysplasia and malignancy. 6. Random Colon Biopsies: Superficial portions of colorectal mucosa with no diagnostic abnormality. There is no evidence of active inflammation, granulomas, dysplasia, or malignancy. ICD10: K29.7 GROSS DESCRIPTION: The specimen is received in six formalin filled containers labeled with the patient's name. 1). The specimen is sublabeled "duodenal" and consists of 2 portions of tissue which aggregate to 0.3 x 0.3 x 0.2 CM. The specimen is entirely submitted in cassette 1A. 2). The specimen is sublabeled "antrum" and consists of 2 portions of tissue which aggregate to 0.4 x 0.3 x 0.2 CM. The specimen is entirely submitted in cassette 2A. 3). The specimen is sublabeled "gastric body" and consists of 2 portions of tissue which aggregate to 0.3 x 0.3 x 0.2 CM. The specimen is entirely submitted in cassette 3A. 4). The specimen is sublabeled "distal esophageal" and consists of 2 portions of tissue which aggregate to 0.2 x 0.2 x 0.1 CM. The specimen is entirely submitted in cassette 4A. 5). The specimen is sublabeled "terminal ileum" and consists of 3 portions of tissue which aggregate to 0.2 x 0.2 x 0.2 CM. The specimen is entirely submitted in cassette 5A. 6). The specimen is sublabeled "random colon" and consists of 5 portions of tissue which aggregate to 0.6 x 0.5 x 0.3 CM. The specimen is entirely submitted in cassette 6A. 10/25/2016 [facility] ICD-9 CODES: CPT CODES: 1: 79962 2: 00904, 15533 3: 13599, 50282 4: 71958 5: 36662 6: 31987 PROCEDURE/ADDENDA: Immunohistochemistry SPI Interpretation {Not Entered} Results-Comments 2.ANTRUM BIOPSY: Immunostains for Helicobacter organisms are negative. The diagnosis is unchanged. 3.GASTRIC BODY BIOPSY: Immunostains for Helicobacter organisms are negative. The diagnosis is unchanged. This test was developed and its performance characteristics determined by [facility]. It has not been cleared or approved by the U. S. Food and Drug Administration. The FDA has determined that such clearance or approval is not necessary. This test is used for clinical purposes. It should not be regarded as investigational or for research. Electronically Signed Out Markus Hernandez MD Electronically Signed Out Cherelle Donovan MD [facility] [address], [place] [address] Technical component performed at [facility], [address], [place], [address]
[2016-11-13] MEDS ORDERED: OXYB5TAB PO (09:32)
[2016-11-13] MEDS ORDERED: SERT50TA9 PO (09:32)
[2016-11-13] MEDS ORDERED: IBUP-1827 PO (09:32)
== END 2016-10-25 23:59 | disposition home or self-care (01) ==
LOC: END 08:25
PROVIDERS: ATTEND Internal Medicine Gastroenterology
DX: R19.4 Change in bowel habit (principal); R10.84 Generalized abdominal pain; K21.9 Gastro-esophageal reflux disease without esophagitis; K64.8 Other hemorrhoids
CPT/HCPCS: 43239; 45380; 99153; G0500; J2250; J2405; J3010; J7030

== ENCOUNTER 2016-11-14 09:52 | Day surgery (SDC) | payer SELFPAY ==
[2016-11-14] VITALS (13 sets, daily range): BP systolic 108–125; BP diastolic 61–87; PULSE 60–88; RESP 13–17; O2SAT 95–98
[~2016-11-14] VITALS: Ht 165.1 cm; Wt 67.8 kg
--- NOTE | 2016-11-14 08:04 | PCM.HPANE ---
Patient Data Surgeon Admitting Provider: Attending Provider:Anushka Simmons MD Primary Care Physician:Ishan Angelo MD Other Provider:Abdi Bangura Anesthesia Reason for Visit Dysmenorrhea, Pelivc Pain, Cystocele Ht/WT & BMI Height (Feet): 5 Height (Inches): 5 Weight (Kilograms): 67.13 Body Mass Index 24.00 Allergies Coded Allergies: No Known Allergies (Verified Allergy, Unknown, 10/24/16) Past Anesthesia History Anesthesia History: Denies:: Abnormal Airway, Anesthesia Reactions, Difficult Intubation, Fam Anesthesia Reaction, Fam Malignant Hypertherm, Malignant Hyperthermia Diabetes History Hx Diabetes?: No MRSA MRSA: No Medications Hypertension Medication: No Home Meds Incl Beta Mariah: No Reported Medications Sertraline HCl (Sertraline)50 Mg [id number] Mg PO DAILY 30 Days Ref 0 11/13/16 Oxybutynin Chloride ER 5 Mg Tab.er.245 Mg PO DAILY Ref 0 11/13/16 Ibuprofen 600 Mg [id number] Mg PO QID PRN For Pain Ref 0 11/13/16 Omeprazole 20 Mg Capsule.dr20 Mg PO DAILY Ref 0 10/24/16 Multivitamin (Multi Vitamin Daily)1 Each Tablet1 Each PO DAILY 30 Days Ref 0 09/11/16 Discontinued Reported Medications oxyCODONE-Acetaminophen 5-325 mg 1 Each Tablet1 Tab PO Q6H PRN For Pain Ref 0 10/25/16 [Ocp] No Conflict Check1 Tab DAILY 09/11/16 History History of ENT Problems?: No HEENT History: Denies:: Abnormal Airway Cataracts Difficult Intubation Dysphagia Hearing Problem Sinus Problem TMJ Denture Type: None Teeth Condition: Within Normal Limits Hx of Heart Problems?: No Cardiovascular History: Denies:: AICD Abdominal Aortic Aneurism Atrial Fibrillation Cardiac Surgery Chest Pain Congestive Heart Failure Edema Heart Murmur Hypertension Irregular Heartbeat Pacemaker Rheumatic Fever Thrombophlebitis Valvular Heart Disease Hx of Respiratory Problem?: No Respiratory History: Positive for:: Tuberculosis (2003-POSITIVE SKIN TEST. TREATMENT FOR 9 MO) Denies:: Asthma COPD Cough Dyspnea Emphysema Hemoptysis Oxygen Administration Pneumonia Use of C-PAP Machine Hx Neurologic Problems?: No Neurological History: Denies:: CVA Dementia Multiple Sclerosis Parkinson's Disease Seizures Hx of GI Problems?: Yes Hx of Problems?: No Genitourinary History: Denies:: Urinary Tract Infection Female Hx: Positive for:: Endometriosis Denies:: Currently (tubal) Problems with Breasts? Skin History: Denies:: History Skin Disorders? Pressure Ulcers Hx Musculoskeletal Problems?: No Musculoskeletal History: Denies:: Back Injury Joint Replacement Musculoskeletal Trauma Hx of Psycho/Social Problems?: No Psycho Social History: Positive for:: Anxiety Hx Depression Denies:: Bipolar Disorder Suicide Attempt Hx Surgeries?: Yes (TUBAL, PART OF CERVIX REMOVED , Laparoscopy, LEEP) Hx Any Other Health Problems?: Yes Other History: Positive for:: Hospitalization (CHILDBIR[facility]) Denies:: Cancer Endocrine Disease Thyroid Disease History Blood Transfusions: Denies:: Blood Transfusions Hx Diabetes: No Hx Alcohol Use: NoHx Substance Use: No Smoking Status: Never Smoker Have You Smoked inLast 12 mo: No Stop/Bang P-Blood Pressure: treated: No B- Body Mass Index > 35 kg/m2: No A- Age over 50: No N- Neck Large Circumference: No G- Gender Male: No CODY Risk Assessment: Low Risk, <3 Yes Risk Assessment Category Category 1A: Patient has history of documented sleep apnea, and HAS NOT received any narcotic, sedative or anesthesia administration during this stay. Category 1B: Patient has history of documented sleep apnea, and HAS received any narcotic , sedative or anesthesia administration during this stay Category 2: Patient has SUSPECTED Obstructive Sleep Apnea, and HAS received any narcotic , sedative or anesthesia administration during this stay. Category 3: Patient has SUSPECTED Obstructive Sleep Apnea and HAS NOT received narcotic, sedative or anesthesia administration during this stay. Category 4: Outpatient in Procedural Areas with known sleep apnea or who screen positive for High Risk via the STOP/BANG questionnaire. Exam Exam General Appearance: Alert, Oriented X3, Cooperative, No Acute Distress HEENT/AIRWAY: MP 1 Lungs: Normal Air Movement Heart: Exam Unremarkable Plan Impression Patient chart reviewed, patient interviewed and anesthestic plan with risks, benefits, and alternatives discussed, and informed consent obtained. ASA Physical Status: ASA2 Mod Systemic Disease Anesthetic Plan: GA (Pt prefers to have no regional anesthesia) Bene/Risks/Altern/Consents: Yes HP Complete Prior to Induction: Yes Gino Kat MD Nov 14, 2016 08:04
[~2016-11-14 09:52] MED LIST changes: +Lactated Ringer's 1,000 ML IV SCH; -OCP; +OXYB5TAB PO; +SERT50TA9 PO; -Sodium Chloride LOK Flush 10 mL Syringe IV PRN; -fentaNYL-PF 50 mCg/mL 2 mL Inj IVPUSH PRN
[2016-11-14] MEDS ORDERED: Propofol 10 mg/mL 20 mL Inj ONE (09:53)
[2016-11-14] MEDS ORDERED: fentaNYL-PF 50 mCg/mL 2 mL Inj ONE (09:53)
[2016-11-14] MEDS ORDERED: HYDROmorphone 1 mg/mL Inj ONE (09:53)
[2016-11-14] MEDS ORDERED: Ondansetron 2 mg/mL 2 mL Inj ONE (09:53)
[2016-11-14] MEDS ORDERED: Dexamethasone 4 mg/mL Inj ONE (09:53)
[2016-11-14] MEDS ORDERED: Lactated Ringer's 1,000 ML IV ONE (10:25)
[2016-11-14] MEDS: CeFAZolin 2 Gm/50 mL D5W IV Premix IV ONE ×2 (11:37→12:26)
[2016-11-14] MEDS ORDERED: Phenazopyridine 97.5 mg Tablet PO STA (11:50)
[2016-11-14] MEDS ORDERED: Phenazopyridine 97.5 mg Tablet ONE (11:57)
[2016-11-14 12:29] LABS: BASOPHILS % (AUTO) 0.7 % (0-3); EOSINOPHILS % (AUTO) 0.3 % (0-5); MONOCYTES % (AUTO) 5.9 % (4-12); Mean Corpuscular Hemoglobin 29.9 pg (27.0-35.0); Mean Corpuscular Volume 87.7 fL (81-100); NEUTROPHILS % (AUTO) 46.8 % (40-74); Platelet Count 339 bil/L (150-400)
[2016-11-14] MEDS ORDERED: 0.9% Sodium Chloride 10 mL Inj IV ONE (12:48)
[2016-11-14] MEDS ORDERED: Bupivacaine-MPF 0.5% W/EPI 30 mL Inj INFILTRATE ONE (12:48)
[2016-11-14] MEDS ORDERED: Lactated Ringer's 500 ML IV PRN (13:01)
[2016-11-14] MEDS ORDERED: Lactated Ringer's 1,000 ML IV SCH (13:01)
[2016-11-14] MEDS ORDERED: Ondansetron 2 mg/mL 2 mL Inj IVPUSH PRN (13:05)
[2016-11-14] MEDS ORDERED: Dexamethasone 4 mg/mL Inj IVPUSH PRN (13:05)
[2016-11-14] MEDS ORDERED: Albuterol-Ipratropium 3 mL Inhalation Solution NEB PRN (13:05)
[2016-11-14] MEDS ORDERED: Labetalol 5 mg/mL 4 mL Inj IV PRN (13:05)
[2016-11-14] MEDS ORDERED: MetoCLOpramide 5 mg/mL 2 mL Inj IVPUSH PRN (13:05)
[2016-11-14] MEDS ORDERED: Atropine 0.4 mg/mL Inj IVPUSH PRN (13:05)
[2016-11-14] MEDS ORDERED: EPHEDrine Sulfate 50 mg/mL Inj IVPUSH PRN (13:05)
[2016-11-14] MEDS ORDERED: HYDROmorphone 1 mg/mL Inj IVPUSH PRN (13:05)
[2016-11-14] MEDS ORDERED: Phenylephrine 10,000 mCg/mL Inj IVPUSH PRN (13:05)
[2016-11-14] MEDS: Lactated Ringer's 1,000 ML IV SCH ×2 (15:04→23:02)
--- NOTE | 2016-11-14 15:04 | PCM.ANEP1 ---
Post Anesthesia PACU Phase 1 Assessment Vital Signs see anesthesia record Vital Signs Date Time Temp Pulse Resp B/P Pulse Ox O2 Delivery O2 Flow Rate FiO2 11/14/16 10:21 36.0 60 14 108/68 97 Room Air Anesthetic Administered: GA Level of Alertness: Awake, talking FERNANDEZ's with Equal Strength: Yes Pain: Yes Pain Scale Score: 2 Nausea or Vomiting: No CV Function & Hydration Stable: Yes Airway Device: Oxygen Delivery: Room Air Lungs: Normal Air Movement Dermatome Level: Full Sensation PACU Phase 2 Assessment Complications: No Follow up Care: No Patient Instructions Provided: N/A Gino Kat MD Nov 14, 2016 15:04
[2016-11-14] MEDS ORDERED: Promethazine 50 mg Rectal Suppository RECTAL PRN (15:05)
[2016-11-14] MEDS ORDERED: Acetaminophen IV 1,000 MG in IV Premix 1 EACH IV PRN (15:05)
[2016-11-14] MEDS ORDERED: Senna-Docusate 8.6-50 mg Tablet PO PRN (15:05)
[2016-11-14] MEDS ORDERED: Alum-Mag Hydrox-Simeth 30 mL Suspension PO PRN (15:05)
[2016-11-14] MEDS: fentaNYL-PF 50 mCg/mL 2 mL Inj IVPUSH PRN ×2 (15:30→15:40)
--- NOTE | 2016-11-14 16:37 | OP ---
[address] [address] OPERATIVE REPORT PATIENT: KELLIE ROTHMAN : 1980 MR#: [id number] ADMIT: 11/14/2016 JOB ID: [id number] DATE OF SURGERY: 11/14/2016 PREOPERATIVE DIAGNOSIS(ES): Dysmenorrhea and chronic pelvic pain, stage 1 cystocele. POSTOPERATIVE DIAGNOSIS(ES): Dysmenorrhea and chronic pelvic pain, stage 1 cystocele. PROCEDURE: Total vaginal hysterectomy with right salpingectomy and cystoscopy. SURGEON: Anushka Simmons MD PUTTY PATCHER: Min Santana MD (orthodontist assistant was required for retraction and exposure and safe completion of the procedure) COMPLICATIONS: None. IMPLANTS: None. ESTIMATED BLOOD LOSS: 150 mL. INTRAVENOUS FLUIDS: 1300 mL. URINE OUTPUT: 500 mL. ANESTHESIA: General. SPECIMEN REMOVED: Uterus and cervix and right fallopian tube were sent to Pathology. FINDINGS: Exam under anesthesia revealed an anteverted, anteflexed uterus. Mobile, normal in size. Adnexa normal to palpation bilaterally. PROCEDURE IN DETAIL: After informed consent was obtained, the patient was taken to the operation room. She was placed under general anesthesia. Then, patient was placed in dorsal lithotomy position. Exam under anesthesia was performed with the findings as mentioned above. Then, patient was prepped and draped in usual sterile fashion. A weighted speculum was placed in the posterior vaginal vault. Anterior retractor was used with good visualization of the cervix. The cervix was grasped with two single-tooth tenaculums. Then, the cervix was circumferentially infiltrated into the submucosal layer with 9 mL of Narcan with epinephrine diluted into normal saline, 1:1. Then a circumferential incision was made at the cervicovaginal junction. The incision was carried down sharply into the endopelvic fascia. The bladder was dissected away from the anterior surface of the uterus using sharp dissection. Then, the posterior aspect of the mucosal incision was then dissected sharply. The peritoneum was identified and incised and the peritoneum was then sutured to the vaginal cuff for identification later in the procedure with a single stitch. Then the uterosacral ligaments were clamped with a Veronica clamp, and were cut and ligated with 0 Vicryl suture bilaterally. Then, the cardinal ligament and the broad ligament where serially clamped and cut, and ligated with 0-Vicryl bilaterally in several bites and including the uterine vessels. After each lateral bite, the anterior vaginal mucosa was further redissected off the cervix until the peritoneum was visualized and the peritoneum was entered. The right angle retractor was placed to protect the bladder. Then, the mesosalpinx and the mesovarian on either sides were clamped with Veronica clamps and divided and double ligated. The uterus was then removed. The pedicles were examined and hemostasis was ensured. The right fallopian tube was accessible and visible so it was clamped with the Veronica clamp, and was excised. The left fallopian tube was not accessible for removal. Then, a culdoplasty was performed where 0-Vicryl suture was placed through the full thickness of the posterior vaginal wall in the midline and including the peritoneum. Then passed through the left uterosacral ligament. Then through the right uterosacral ligament and passed back through the full posterior vaginal wall edge at the midline to be tied together at the midline. Then, the vaginal cuff was closed with several [id number] stitches. The culdoplasty stitch then tied together in the midline ensuring high suspension prophylactically for pelvic organ prolapse. Then the corner stitches of the vaginal cuff closure were tied together in the midline. The cystoscopy was performed after draining 500 mL of urine out of the bladder. Bladder wall was examined and found to be intact with simple air bubble at the dome of the bladder. Trigone was intact with no evidence of injury. Both ureteric openings visualized with positive jets. The patient was given pyridium prior to the procedure with orange jet noticed from both orifices. No sutures or injury to the bladder was noted. The vagina was examined and was hemostatic. The procedure was complete at this time. All instrument, needles and sponge counts were correct x2. I, Anushka Simmons MD, was present and scrubbed for the entire procedure.
--- NOTE | 2016-11-14 16:50 | NUR ---
received to room 1003 from PACU VSS, pt having 6/10 abd pain and mild nausea. Dilaudid IV and Zofran given. scant vag bleeding, pt has Trammell in draining qs. here with her
[2016-11-14] MEDS: HYDROmorphone 1 mg/mL Inj IVPUSH PRN ×2 (17:51→23:07)
[2016-11-14] MEDS: Ondansetron 2 mg/mL 2 mL Inj IVPUSH PRN (17:51)
[2016-11-14] MEDS: Senna-Docusate 8.6-50 mg Tablet PO SCH (19:36)
[2016-11-14] MEDS: oxyCODONE-Acetamin 5-325 mg Tablet PO PRN (21:05)
[2016-11-15 00:28] VITALS: BP 107/61; PULSE 52; RESP 16; O2SAT 96
[2016-11-15] MEDS: oxyCODONE-Acetamin 5-325 mg Tablet PO PRN ×3 (02:58→12:13)
--- NOTE | 2016-11-15 03:40 | NUR ---
Pain Patient continuously rating pain an -02/02 upon assessments. Alternating Dilaudid 1mg IVP PRN with Percocet 5/325 two tabs PO with somewhat effective results. Patient states it only gives relief for a little bit and then the pain is completely back. Noted to be resting with eyes closed with each hourly rounding. Addendum: 11/15/16 at 0551 by JENA VICTOR RN IVF this shift= [id number]. Pump not cleared on day shift.
[2016-11-15] MEDS: HYDROmorphone 1 mg/mL Inj IVPUSH PRN ×2 (03:59→09:42)
[2016-11-15 05:22] LABS: BASOPHILS % (AUTO) 0.3 % (0-3); EOSINOPHILS % (AUTO) 0.1 % (0-5); MONOCYTES % (AUTO) 7.5 % (4-12); Mean Corpuscular Hemoglobin 29.3 pg (27.0-35.0); Mean Corpuscular Volume 89.3 fL (81-100); Platelet Count 327 bil/L (150-400)
[2016-11-15 05:55] VITALS: BP 109/64; PULSE 57; RESP 16; O2SAT 97
[2016-11-15] MEDS: Ondansetron 2 mg/mL 2 mL Inj IVPUSH PRN (07:55)
[2016-11-15] MEDS: Senna-Docusate 8.6-50 mg Tablet PO SCH (08:00)
[2016-11-15 09:28] VITALS: BP 112/71; PULSE 54; RESP 18; O2SAT 98
[2016-11-15] MEDS: Lactated Ringer's 1,000 ML IV SCH ×2 (09:46→15:04)
[2016-11-15] MEDS ORDERED: IBUP-1827 PO (10:12)
[2016-11-15] MEDS ORDERED: Senna/Docusate Sodium PO (10:12)
[2016-11-15] MEDS ORDERED: OXYC1TAB24 PO (10:12)
[2016-11-15] MEDS ORDERED: DOCU-41 PO (10:12)
--- NOTE | 2016-11-15 10:30 | PCM.DIGYN ---
Surgical Discharge Instruction Dates of Hospitalization Date of Hospital Admission 11/14/2016 Providers Admitting Physician: Primary Care Physician: Ishan Angelo MD Attending Physician: Anushka Simmons MD Diagnosis at Time of Discharge Diagnosis at time of discharge Status post Total vaginal hysterectomy and right salpingectomy. Dysmenorrhea Pelvic pain Cyctocele stage 1 Post-operative diagnosis Status post Total vaginal hysterectomy and right salpingectomy. Dysmenorrhea Pelvic pain Problems: Diet Discharge Diet: No restrictions Activity Discharge Activity-General: No lifting >15 pounds for 2 weeks, No lifting >10 pounds for 4-6 weeks, Other (Pelvic rest: no sex no douching and no tampons for 8 weeks ) Dressing and Incisional Care Hygiene: May shower Follow Up Plan Follow-up appointment: Weeks (Two ) Call your provider for: Fever, Chills, Shortness of breath, Vomitting, Drainage at incision (vaginal drainage), Heavy vaginal bleeding, Increasing pain , Other (P) Anushka Simmons MD Nov 15, 2016 10:30
[2016-11-15] MEDS ORDERED: PROM25TA14 PO (14:24)
--- NOTE | 2016-11-15 14:30 | PCM.DC.SUR ---
Discharge Summary Date of Service: Nov 15, 2016 Date of Hospital Admission: Date of Discharge: Hospital Course: Voided, pain moderately controlled with percocet 2 tab, well controlled when ibuprofen was added. Instructed to take ibuprofen every 6 hours and percocet PRN. Will be discharged later today when tolerating regular diet and ambulating. F/U in the office in 1-2 weeks. Disposition: home Follow-up Plan: Collections Analyst Discharge Instruction Surgical Discharge Instruction Dates of Hospitalization Date of Hospital Admission 11/14/2016 Providers Admitting Physician: Primary Care Physician: Ishan Angelo MD Attending Physician: Anushka Simmons MD Diagnosis at Time of Discharge Diagnosis at time of discharge Status post Total vaginal hysterectomy and right salpingectomy. Dysmenorrhea Pelvic pain Cyctocele stage 1 Post-operative diagnosis Status post Total vaginal hysterectomy and right salpingectomy. Dysmenorrhea Pelvic pain Problems: Diet Discharge Diet: No restrictions Activity Discharge Activity-General: No lifting >15 pounds for 2 weeks, No lifting >10 pounds for 4-6 weeks, Other (Pelvic rest: no sex no douching and no tampons for 8 weeks ) Dressing and Incisional Care Hygiene: May shower Follow Up Plan Follow-up appointment: Weeks (Two ) Call your provider for: Fever, Chills, Shortness of breath, Vomiting, Drainage at incision (vaginal drainage), Heavy vaginal bleeding, Increasing pain, Other ( P) Anushka Simmons MD Nov 15, 2016 10:30 ([Senna/Docusate Sodium]) 1 TABLET TABLET 1 TABLET PO DAILY PRN PRN For Constipation Docusate Sodium (Colace) 100 Mg Capsule 100 MG PO BID PRN PRN For Constipation Ibuprofen (Ibuprofen) 600 Mg Tablet 600 MG PO QID PRN PRN For Pain Multivitamin (Multi Vitamin Daily) 1 Each Tablet 1 EACH PO DAILY (Reported) Omeprazole (Omeprazole) 20 Mg Capsule.dr 20 MG PO DAILY (Reported) Oxybutynin Chloride ER (Oxybutynin Chloride ER) 5 Mg Tab.er.24 5 MG PO DAILY ( Reported) Promethazine (Promethazine) 25 Mg Tablet 25 MG PO Q6H PRN PRN For Nausea Sertraline HCl (Sertraline) 50 Mg Tablet 50 MG PO DAILY (Reported) oxyCODONE-Acetaminophen 5-325 mg (oxyCODONE-Acetaminophen 5-325 mg) 1 Each Tablet 1-2 TAB PO Q4H PRN PRN For Moderate Pain Anushka Simmons MD Nov 15, 2016 14:30
[2016-11-15] MEDS ORDERED: Promethazine 25 mg Rectal Suppository RECTAL PRN (15:40)
--- NOTE | 2016-11-15 16:40 | NUR ---
Discharge Orders for discharge were received. The patient was made aware of the plan to discharge and was agreeable to go. The patient was given information and teaching regarding her diagnosis and treatment, signs and symptoms to be aware of, follow up instructions, scripts for new medications as well as teaching on those medications. The patient signified understanding of this information, verified using the teach back method. The patient's asymptomatic IV was then DC'd intact and the patient was dressed in her own clothing. The patient's belongings were then gathered and she ambulated into a wheelchair that took her to the main entrance where she entered a private vehicle. At the time of discharge the patient was alert and oriented, denies nausea, pain within a tolerable level, able to void and tolerating food well, surgical dressing intact.
--- NOTE | 2016-11-18 11:44 | PATH ---
SURGICAL PATHOLOGY Attending Physician:Anushka Simmons CASE STATUS: Signed Out PATIENT NAME: OLLIE ROTHMAN PID: [id number] : 1980 DATE COLLECTED:11/14/2016 00:00 SPECIMEN: 1: Uterus +/- tubes/ovaries, except neoplastic, prolapse 2: Fallopian Tube, Biopsy CLINICAL HISTORY: DYSMENORRHEA, PELVIC PAIN, CYSTOCELE 1). UTERUS AND CERVIX 2). RIGHT FALLOPIAN TUBE FINAL DIAGNOSIS: 1.UTERUS AND CERVIX: CERVICAL STROMA WITH HEMORRHAGE AND FOREIGN BODY REACTION, CONSISTENT WITH PRIOR PROCEDURE (SEE [id number], CERVIX LEEP CONE BIOPSY). Negative for dysplasia. Benign endometrium, no hyperplasia or atypia. No evidence of neoplasia. 2.RIGHT FALLOPIAN TUBE: FALLOPIAN TUBE WITH NO PATHOLOGIC ALTERATIONS. ICD10 N94.6 GROSS DESCRIPTION: The specimens are received in formalin, labeled with the patient's name, and sublabeled as the following: (1) uterus + cervix; (2) right fallopian tube. (1) The specimen is received in formalin, labeled with the patient's name, sublabeled as uterus, bilat tubes with right ovary, and consists of a uterus (88 g, 4.3 cm AP, 8.4 cm SI, 5.1 cm ML). The ovaries and fallopian tubes are absent. The cervix (1.7 cm AP, 2.5 cm ML) has a vaginal cuff (up to 1.0 cm in depth), transverse os and patent endocervical canal. The endometrium (average thickness-0.1 cm) is mckenzie-pink smooth and flat. The myometrium (thickness-1.8 cm) is mckenzie-white and unremarkable. The serosa is pale mckenzie smooth and shiny. Section code: (1A) anterior cervix; (1B) posterior cervix; (1C, 1D) anterior endomyometrium; (1E, 1F) posterior endomyometrium. (2) The specimen consists of a fimbriated fallopian tube (length-3.2 cm, diameter-0.5 cm). The serosa is pichardo-mckenzie smooth and shiny. The lumen is mckenzie and unremarkable. No nodules, masses or lesions are identified. Section code: (2A) fallopian tube, serially sectioned, indirect sales representative; (2B) fimbria, bivalved, entirely submitted. 11/16/16 EBONY MICRO DESCRIPTION: See diagnosis. ICD-9 CODES: CPT CODES: 1: 33380 2: 09393 Electronically Signed Out Linda Craig MD [facility] [address], [place] [address] Technical component performed at [facility], [facility] [address], [place], [address]
== END 2016-11-15 16:24 | disposition home or self-care (01) ==
LOC: SAS 09:52 → OSC 16:43 → SAS 11-15 16:24
PROVIDERS: ATTEND Obstetrics & Gynecology
DX: N94.6 Dysmenorrhea, unspecified (principal); R10.2 Pelvic and perineal pain; G89.18 Other acute postprocedural pain; N81.10 Cystocele, unspecified; F32.9 Major depressive disorder, single episode, unspecified
CPT/HCPCS: 36415; 58262; 80048; 85025; 86850; J0131; J0690; J1100; J1170; J1885; J2175; J2250; J2405; J3010; J7120

== ENCOUNTER 2016-12-04 06:29 | Emergency (ER) | payer SELFPAY ==
[~2016-12-04] VITALS: Ht 162.6 cm; Wt 66.8 kg
[~2016-12-04 06:29] MED LIST changes: +DOCU-41 PO; -Lactated Ringer's 1,000 ML IV SCH; +OXYC1TAB24 PO; +PROM25TA14 PO; +Senna/Docusate Sodium PO
[2016-12-04 06:32] VITALS: BP 114/76; PULSE 69; RESP 16; O2SAT 98
--- NOTE | 2016-12-04 06:43 | ED.REPORT ---
HPI-General Illness Date of Service Dec 04, 2016 ED Provider: 36-year-old female with recent history of hysterectomy presents today with abdominal pain. Her hysterectomy was 3 weeks ago. About 7 days ago she began experiencing abdominal pain, pain with urination. 2 days ago she went to her doctor and was prescribed Keflex, she has been taking this since prescribed but has not seen any change in symptoms. She states that her abdominal pain is progressively worsening. She describes shortness of breath, chest pain, headache, nausea, vomiting. Nursing Notes Stated Complaint: BLEEDING AND SEVERE PAIN Chief Complaint: Female Abdominal Pain Nursing Notes Reviewed: Yes Allergies: Coded Allergies: No Known Allergies (Verified Allergy, Unknown, 10/24/16) Scheduled Multivitamin (Multi Vitamin Daily) 1 Each Tablet 1 EACH PO DAILY Omeprazole (Omeprazole) 20 Mg Capsule.dr 20 MG PO DAILY Oxybutynin Chloride ER (Oxybutynin Chloride ER) 5 Mg Tab.er.24 5 MG PO DAILY Sertraline HCl (Sertraline) 50 Mg Tablet 50 MG PO DAILY Sulfamethoxazole/Trimeth 800-160 mg (Bactrim DS 800-160 mg) 1 Each Tablet 1 TABLET PO BID Scheduled PRN ([Senna/Docusate Sodium]) 1 TABLET TABLET 1 TABLET PO DAILY PRN PRN For Constipation Docusate Sodium (Colace) 100 Mg Capsule 100 MG PO BID PRN PRN For Constipation Hydrocodone-Acetaminophen 5-300 mg (Hydrocodone-Acetaminophen 5-300 mg) 1 Each Tablet 1 TABLET PO Q4H PRN PRN For Pain Ibuprofen (Ibuprofen) 600 Mg Tablet 600 MG PO QID PRN PRN For Pain Promethazine (Promethazine) 25 Mg Tablet 25 MG PO Q6H PRN PRN For Nausea oxyCODONE-Acetaminophen 5-325 mg (oxyCODONE-Acetaminophen 5-325 mg) 1 Each Tablet 1-2 TAB PO Q4H PRN PRN For Moderate Pain General Time Seen by MD: 06:43 Chief Complaint Urinary frequency Hx Obtained From: Patient Sudden in Onset?: Yes Onset Occurred: 1 week ago Symptom Duration: 1 week Severity: Current: Pain level 7 out of 10 Recent Healthcare: Previous surgery (hysterectomy) Past Medical History Past Medical History chronic headaches-not previously worked up fibromyalgia Reports: GERD Past Surgical History laparoscopic bilateral tubal ligation Smoking History Never Smoker Social History Alcohol Use: "Social" Drug Use: Denies drug use Other Social History: Good social support, , Lives with children Ambulatory Status Independent Review of Systems Complete sys rev & neg: except as marked. Physical Exam Vital Signs Vital Signs Date Time Temp Pulse Resp B/P Pulse Ox O2 Delivery O2 Flow Rate FiO2 12/04/16 10:29 68 16 101/57 97 Room Air 12/04/16 08:59 68 16 101/57 97 Room Air 12/04/16 06:32 37.0 69 16 114/76 98 Room Air Initial VS: Reviewed, Vital signs normal General/Constitutional: Well-developed, Well-nourished Head / Eyes: Atraumatic, Normocephalic, PERRL ENT: Mucous membranes moist, Conjunctiva normal, No scleral icterus Neck: Supple, Non-tender, Full range of motion Respiratory: Breath sounds normal, Clear to auscultation, No respiratory distress Cardiovascular: Regular rate & rhythm, Heart sounds normal, Intact distal pulses Extremities: Vascular intact, Neuro intact, No swelling, No tenderness Skin: Warm, Dry, No cyanosis Neurologic: Alert, Oriented, Nonfocal Psychiatric: Mood/affect normal, Behavior normal, Normal thought content Abdomen: Atraumatic, Soft, No rebound, BS normoactive, No distention, No palpable mass, No pulsatile mass Tenderness/Guarding/Rebound: Positive: Tender RLQ... (Moderate), Tender RUQ... (Moderate), Tender flank R, Tender periumbilical, Tender suprapubic, Negative: Rigid to palpation Interpretation & Diagnostics Lab Results Interpretation Result Diagram: 12/04/16 0725 12/04/16 0725 Test 12/04/16 07:25 12/04/16 07:39 White Blood Count 7.7th/mm3 (3.8-10.1) Red Blood Count 4.31mil/mm3 (3.90-5.20) Hemoglobin 12.8g/dL (12.0-15.6) Hematocrit 37.8% (35.0-46.0) Mean Corpuscular Volume 87.7fL (81-100) Mean Corpuscular Hemoglobin 29.7pg (27.0-35.0) Mean Corpuscular Hemoglobin Concent 33.9% (32.0-37.0) Red Cell Distribution Width 12.6% (12.3-15.4) Platelet Count 389bil/L (150-400) Neutrophils (%) (Auto) 55.7% (40-74) Lymphocytes (%) (Auto) 37.2% (14-46) Monocytes (%) (Auto) 5.5% (4-12) Eosinophils (%) (Auto) 0.8% (0-5) Basophils (%) (Auto) 0.7% (0-3) Sodium Level 136mEq/L (134-144) Potassium Level 3.8mEq/L (3.5-5.2) Chloride Level 100mEq/L (97-108) Carbon Dioxide Level 22mmol/L (18-29) Blood Urea Nitrogen 10mg/dL (6-20) Creatinine 0.50mg/dL (0.57-1.00) Estimat Glomerular Filtration Rate 202mL/min (>59) Glucose Level 107mg/dL (60-99) Calcium Level 9.5mg/dL (8.5-10.1) Magnesium Level 2.2mg/dL (1.6-2.6) Total Bilirubin 0.2mg/dL (0.0-1.2) Aspartate Amino Transf (AST/SGOT) 14U/L (0-50) Alanine Aminotransferase (ALT/SGPT) 11U/L (0-32) Alkaline Phosphatase 94U/L (25-150) Total Protein 8.0g/dL (6.4-8.4) Albumin 4.4g/dL (3.4-5.0) Lipase 19U/L (13-60) Hold Cobb Top Tube Received (Received) Urine Color Bloody (YELLOW) Urine Appearance Cloudy (CLEAR,HAZY) Urine pH 6.0 (5.0-8.0) Urine Specific [place] 1.010 (1.003-1.035) Urine Protein 100mg/dL (NEG,TRACE) Urine Glucose (UA) Negativemg/dL (NEGATIVE) Urine Ketones Negativemg/dL (NEGATIVE) Urine Occult Blood Large (NEGATIVE) Urine Nitrite Positive (NEGATIVE) Urine Bilirubin Negative (NEGATIVE) Urine Urobilinogen Normalmg/dL (NORMAL) Urine Leukocyte Esterase Small (NEGATIVE) Urine RBC Packed/hpf (0-2) Urine WBC 0-5/hpf (0-5) Urine Epithelial Cells Occasional/hpf (NONE-MOD) Urine Crystals None seen (NONE SEEN) Urine Bacteria Moderate/hpf (NONE-FEW) Urine Hyaline Casts None/lpf (NONE) Urine Granular Casts None seen (NONE SEEN) Urine Waxy Casts None seen (NONE SEEN) Urine Red Blood Cell Casts None seen (NONE SEEN) Urine White Blood Cell Casts None seen (NONE SEEN) Urine Mucus None seen (None Seen) Urine Trichomonas None seen (NONE SEEN) Urine Yeast None (NONE SEEN) Urinalysis Comment None Urine Culture Reflexed Indicated Lab Results Interpretation: Labs not clinically significant at this time. UA significant for UTI. ECG Interpretation Time: 07:10 Interpreted by: ED physician Normal ECG Interpretation: Normal ECG w/ rate of... (64), Normal rate, Normal sinus rhythm, No acute ischemic changes, Normal QRS, Normal axis, Normal intervals, No change from prior ECGs, Adequate tracing Re-Eval/Medical Decision Med Decision/Clinical Course With the patient's presentation and history initially I was concerned for systemic infection. Also with patient's recent history of surgery combined with her symptoms of shortness of breath a CT scan was ordered to rule out PE, CT scan of the pelvis and abdomen was ordered to rule out pathology relating to the surgery itself. The results indicated the systemic infection is unlikely at this point, with a low white count and no signs of anemia. However, the patient does have a significant urinary tract infection ongoing. Neither CT scan showed any focus of concern. There was moderate fluid in the abdomen however this is consistent with recent surgery. Dr. Simmons, the surgeon who did the hysterectomy, was consulted and prefers the patient be changed from Keflex to Bactrim double strength for 10 day period. She will see her in the office within the next 2 days. Consultation : Referral / Consult Name: Anushka Simmnos MD Consulted With: Surgeon Call Returned at: 09:20 Assistant Golf Coach: Will see in office, Agrees with plan Counseled Regarding: Diagnosis, Lab results, Need for follow-up, When/why to return to ED Discharge & Departure Primary Impression: UTI (urinary tract infection) Urinary tract infection type: site unspecified Hematuria presence: with hematuria Qualified Code: N39.0 - Urinary tract infection, site not specified Disposition: Home Discharge Condition All VS Reviewed: Yes Condition: Stable Additional Instructions: You presented to the emergency department today with symptoms of urinary tract infection which is confirmed by the labs were drawn today. You have been taking Keflex for the last 2 days to cover for this infection, however we are concerned at this time that the Keflex is not sufficient. We would like to change the antibiotic to Bactrim which you will take twice a day for the next 10 days. We have discussed this issue with your property technician, she has agreed to see you in the office. You should receive a call from her office within the next 24 hours, if you do not please call them directly. Please return to the emergency department if you feel suddenly short of breath, experience high fevers, or any other symptoms that are concerning to you and have developed since you were seen here today. Referrals: Ishan Angelo MD (PCP) Attending Statement The patient was seen and examined together with Dr. Kern on 12/04/16 and I have added additional information to the note above. copies to: Anushka Simmons MD; Ishan Angelo MD, Timothy S DO Dec 04, 2016 06:43 Ranjith Elder DO Dec 04, 2016 07:09
[2016-12-04] MEDS ORDERED: 0.9% Sodium Chloride 1,000 ML IV ONE (07:00)
[2016-12-04 07:39] LABS: BASOPHILS % (AUTO) 0.7 % (0-3); EOSINOPHILS % (AUTO) 0.8 % (0-5); MONOCYTES % (AUTO) 5.5 % (4-12); Mean Corpuscular Hemoglobin 29.7 pg (27.0-35.0); Mean Corpuscular Volume 87.7 fL (81-100); NEUTROPHILS % (AUTO) 55.7 % (40-74); Platelet Count 389 bil/L (150-400)
[2016-12-04 07:59] LABS: Magnesium 2.2 mg/dL (1.6-2.6)
[2016-12-04 08:16] LABS: APPEARANCE,URINE CLOUDY (CLEAR,HAZY); COLOR,URINE BLOODY (YELLOW); OCCULT BLOOD,URINE LARGE (NEGATIVE)
[2016-12-04 08:18] LABS: UROBILINOGEN,URINE NORMAL (NORMAL)
--- NOTE | 2016-12-04 08:58 | DRSVH ---
PROCEDURE: CT ANGIO CHEST PULMONARY EMBOLISM ([id number]) INDICATIONS: post surgery, chest pain, dyspnea TECHNIQUE: After the administration of intravenous contrast, 2 mm thick sections acquired from the pulmonary api lali to the posterior costophrenic angles. 3-dimensional maximum intensity projection (MIP) coronal a nd sagittal reformats were then acquired through the thorax. For radiation dose reduction, the follo wing was used: automated exposure control, adjustment of mA and/or kV according to patient size. COMPARISON: [facility], CT, CT ABD PELVIS W CON, 08/12/2016, 21:51. [facility], CT, CT ABD PELVIS W CON, 12/04/2016, 8:24. FINDINGS: Image quality: Excellent. Pulmonary arteries: Pulmonary arteries are normal in size, and demonstrate no intraluminal filling d efects to suggest central pulmonary embolism. Lungs and pleura: No change in 5 mm diameter right lung base nodule. No pleural effusions or pneumoth orax. Central and peripheral airways are patent. Mediastinum: Heart size is normal, without pericardial effusion. No mediastinal or hilar adenopathy . Thoracic aorta is normal in caliber and enhancement. Esophagus is normal in caliber, without hiat al hernia. Bones and chest wall: No suspicious bony lesions. Ribs and thoracic spine appear intact throughout. Thyroid gland is within normal limits. No axillary or supraclavicular adenopathy. Abdomen: Visualized upper abdominal solid organs appear normal in the early arterial phase of enhanc ement. IMPRESSION: 1. No acute process. No pulmonary embolus. 2. No change in 5 mm diameter right lung base nodule; followup is recommended as below. Fleischner Society criteria for SOLID lung nodule followup. Nodule size (mm)Low-risk patientHigh-risk patient<6 (single or multiple)No routine followup.Optional CT at 12 months. 6-8 (single or multiple)CT at 6-12 months, then optional CT at 18-24 mo.CT at 6-12 m onths, then CT at 18-24 months. >8 (single)CT, PET-CT, or biopsy at 3 months. Same as for low-risk p ts. >8 (multiple)CT at 3-6 months, then optional CT at 18-24 mo.CT at 3-6 months, then CT at 18-24 m onths. Recommendations do not apply to lung cancer screening, patients with immunosuppression, or patients w ith known primary cancer. Dictated by: Hossein Mcgrath M.D. on 12/04/2016 at 8:54 Approved by: Hossein Mcgrath M.D. on 12/04/2016 at 8:56
[2016-12-04 08:59] VITALS: BP 101/57; PULSE 68; RESP 16; O2SAT 97
--- NOTE | 2016-12-04 09:03 | DRSVH ---
PROCEDURE: CT ABDOMEN AND PELVIS WITH CONTRAST ([id number]) INDICATIONS: post hysterectomy, pelvic pain TECHNIQUE: After the administration of intravenous contrast, 5 mm thick sections acquired from the diaphragm to the symphysis. 5 mm coronal and sagittal reformats were acquired. For radiation dose reduction, the following was used: automated exposure control, adjustment of mA and/or kV according to patient hien vega COMPARISON: [facility], CT, CT ABD PELVIS W CON, 08/12/2016, 21:51. FINDINGS: Image quality: Excellent. ABDOMEN: Lung bases: No change in 5 mm diameter right lung base nodule. Lung bases are otherwise clear. Hear t size is normal. Solid organs: Liver and spleen are normal in size and enhancement. Gallbladder is within normal shaffer its. Biliary system is non dilated. Pancreas enhances normally. No adrenal nodules. Kidneys demon strate normal size and enhancement, without hydronephrosis. Peritoneum and bowel: Bowel loops demonstrate normal wall thickness and caliber. No pneumoperitoneum . Small amount of free fluid in the pelvis is present. Appendix not seen. No evidence of appendicitis . Nodes and vessels: No retroperitoneal or mesenteric adenopathy by size criteria. Aorta and inferior vena cava are normal in size. Miscellaneous: No ventral hernias. PELVIS: Genitourinary: Bladder wall thickness is normal. Status post hysterectomy. 33 mm diameter right adn exal cyst is present. Miscellaneous: No inguinal hernias or adenopathy. Bones: No suspicious bony lesions. No vertebral body compression fractures. IMPRESSION: 1. No acute process. 2. Status post hysterectomy. Right ovarian cyst. Small amount of free fluid within the pelvis, which is within physiologic/expected postsurgical limits. 3. Appendix not seen. No evidence of appendicitis. Dictated by: Hossein Mcgrath M.D. on 12/04/2016 at 8:57 Approved by: Hossein Mcgrath M.D. on 12/04/2016 at 9:01
[2016-12-04] MEDS ORDERED: SULF20OR7 PO (09:35)
[2016-12-04] MEDS ORDERED: HYDR-3090 PO (09:36)
[2016-12-04] MEDS ORDERED: Trimeth-Sulfa 160-800 mg/20 mL - 20 mL Suspension PO ONE (09:40)
[2016-12-04] MEDS ORDERED: SULF1TAB35 PO (09:52)
[2016-12-04 10:29] VITALS: BP 101/57; PULSE 68; RESP 16; O2SAT 97
== END 2016-12-04 10:31 | disposition home or self-care (01) ==
LOC: SED 06:29
DX: N39.0 Urinary tract infection, site not specified (principal); Z90.710 Acquired absence of both cervix and uterus; K21.9 Gastro-esophageal reflux disease without esophagitis; M79.7 Fibromyalgia
CPT/HCPCS: 36415; 71275; 74177; 80053; 81000; 83690; 83735; 85025; 87086; 87088; 93005; 96361; 96374; 96376; 99285; J2270; J7030; Q9967